=== PATIENT | male | born 1940 | race Caucasian/White ===

== ENCOUNTER 2020-03-29 | Outpatient (REF) | payer MEDICARE, SELFPAY | END 2020-03-29 00:01 | disposition home or self-care (01) | LOC: HO.VC | PROVIDERS: Visit Provider Internal Medicine | DX: Z23 Encounter for immunization (principal) | CPT/HCPCS: 0011A ==

== ENCOUNTER 2020-04-26 | Outpatient (REF) | payer MEDICARE, SELFPAY | END 2020-04-26 00:01 | disposition home or self-care (01) | LOC: HO.VC | PROVIDERS: Visit Provider Internal Medicine | DX: Z23 Encounter for immunization (principal) | CPT/HCPCS: 0012A ==

== ENCOUNTER 2020-10-10 09:57 | Outpatient (REF) | payer MEDICARE, SELFPAY ==
[2020-10-10 10:33] LABS: Basophils Percent Auto 0.4 % (0-2); Eosinophils Absolute Auto 0.1 X10*3/uL (0.0-0.4); Eosinophils Percent Auto 1.2 % (0-4); Imm Gran Abs Auto 0.01 X10*3/uL (0.00-0.03); Imm Gran Pct Auto 0.2 % (0.0-0.4); MANUAL DIFF FLAG SCAN; Mean Corpuscular HGB Conc 33.4 g/dl (31.0-36.0); Neutrophils Percent Auto 61.9 % (45-73); PLT CLUMP 1; SCAN SMEAR FLAG 1
[2020-10-10 10:35] LABS: Hematocrit 39.2 % (42-52); Hemoglobin 13.1 g/dl (14.0-18.0); Lymphocytes Absolute Auto 1.5 X10*3/uL (1.2-4.9); Mean Corpuscular Hemoglobin 31.6 pg (27.0-33.0); Mean Corpuscular Volume 94.5 fL (80-98); Mean Platelet Volume 10.8 fL (9.4-12.4); Monocytes Absolute Auto 0.5 X10*3/uL (0.1-1.2); Monocytes Percent Auto 9.3 % (2-11); Neutrophils Absolute Auto 3.5 X10*3/uL (2.0-8.3); Platelet Count 129 X10*3/uL (160-400); Red Blood Count 4.15 X10*6/uL (4.60-5.80); Red Cell Distribution Width 12.5 % (11.0-16.0); White Blood Count 5.7 X10*3/uL (4.8-10.8)
[2020-10-10 10:45] LABS: Estimated Average Glucose 103 mg/dL; Hemoglobin A1c % 5.2 %
[2020-10-10 11:04] LABS: Alanine Aminotransferase 29 U/L (0-40); Albumin Level 4.2 g/dL (3.5-5.0); Alkaline Phosphatase 59 U/L (39-117); Anion Gap 11 (12-20); Aspartate Amino Transferase 20 U/L (5-37); Bilirubin Total 1.2 mg/dL (0.0-1.0); Blood Urea Nitrogen 16 mg/dL (9-16); Carbon Dioxide 27 mmol/L (22-29); Chloride 106 mmol/L (96-108); Cholesterol 157 mg/dL; Estimated Glomerular Filt Rate 53; Glucose Fasting 94 mg/dL (60-99); HDL Cholesterol 45 mg/dL; LDL Cholesterol Calculated 100 mg/dl; Potassium 3.9 mmol/L (3.3-5.1); Sodium 140 mmol/L (135-145); Total Protein 6.9 g/dL (6.5-8.0); Triglycerides 61 mg/dL
[2020-10-10 11:13] LABS: Free T4 (Free Thyroxine) 0.98 ng/dL (0.71-1.85); Thyroid Stimulating Hormone 1.33 uIU/mL (0.32-4.0)
[2020-10-10 13:38] LABS: Folate > 20.0 ng/mL (> or = 4.0); Vitamin B12 568 pg/mL (200-900)
[2020-10-14 13:51] LABS: Vitamin D 25-OH, D2 <4 ng/mL; Vitamin D 25-OH, D3 32 ng/mL; Vitamin D 25-OH, Total 32 ng/mL (30-100)
== END 2020-10-10 09:58 | disposition home or self-care (01) ==
LOC: HO.LAB 09:57
PROVIDERS: Absent Provider Internal Medicine; PCP Internal Medicine; Visit Provider Internal Medicine
DX: I10 Essential (primary) hypertension (principal); E78.00 Pure hypercholesterolemia, unspecified; R73.02 Impaired glucose tolerance (oral); E78.5 Hyperlipidemia, unspecified; E55.9 Vitamin D deficiency, unspecified
CPT/HCPCS: 36415; 80053; 80061; 82306; 82607; 82746; 83036; 84439; 84443; 85025

== ENCOUNTER 2024-09-13 13:27 | Emergency (ER) | payer MEDICARE, SELFPAY ==
[2024-09-13 13:46] VITALS: BP 133/92; PULSE 70; RESP 18; TEMP 36.5; O2SAT 98; BMI 25.1
--- NOTE | 2024-09-13 13:46 | ED.SKABFB ---
HPI - Skin/Abscess/Foreign Bdy General Chief complaint: Skin/Abscess/Foreign Body Stated complaint: injury on nose Time Seen by Provider: 09/13/24 13:52 Source: patient Mode of arrival: ambulatory Limitations: language barrier (Slovenian-speaking forestry workers utilized) History of Present Illness ED Provider: jojo sharpe manpower development specialist manager HPI narrative: Patient is an 84 year old male with past medical history of BPH, hypercholesterolemia, hypertension, impaired glucose intolerance who presents emergency department for evaluation. He reports approximately 1 month ago the car door swung shot resulting in a scratch on the tip of his nose. He states that it has not healed. It has since created a lump, that occasionally bleeds from the center where there was a scabbed area. Denies any pain with this. No redness. He is quite adamant that there was no previous lesion prior to the initial injury. Denies any additional skin rashes or lesions. Related Data Previous Rx's ?Medication ?Instructions ?Recorded amlodipine 10 mg tablet 10 mg PO DAILY 90 days #90 tabs 09/06/20 tamsulosin 0.4 mg capsule 0.4 mg PO DAILY #90 caps 11/21/20 atorvastatin 10 mg tablet 10 mg PO DAILY #90 tabs 08/31/21 Allergies Allergy/AdvReac Type Severity Reaction Status Date / Time No Known Allergies (No Known Allergy Verified 09/13/24 13:48 Allergies*) Review of Systems Review of Systems: Yes all other systems are reviewed and are negative [facility] Past Medical History Attestation statement: The following information was validated with the patient. Source: old records reviewed Medical History PSA elevation Vitamin D deficiency Left wrist fracture Impaired glucose tolerance Hemorrhoid Shingles Diverticular disease BPH (benign prostatic hyperplasia) Hypercholesterolemia Hypertension Surgical History History of colonoscopy Family History Family History Father No problems noted. Mother No problems noted. Social History Social History Housing: Apartment Alcohol intake: former Patient Tobacco Use Status: Never used Tobacco e-Cigarette/Vaping Use: Never Used Second Hand Smoke Exposure: No Advance Directives: No Advance Directives Information Provided: Yes service: No Current occupational status: disabled Physical Exam Vital Signs: Vital Signs: Last Vital Signs Temp 97.7 F 09/13/24 13:46 Pulse 70 09/13/24 13:46 Resp 18 09/13/24 13:46 BP 133/92 H 09/13/24 13:46 Pulse Ox 98 09/13/24 13:46 O2 Del Method Room Air 09/13/24 13:46 BMI result Body Mass Index 25.1 Appearance: Alert.?Oriented to person, place and time. No acute distress.?Normal affect.?? CVS: Heart sounds normal. Normal heart rate and rhythm.? Pulses normal.?? Respiratory: No respiratory distress.? Lung sounds clear to auscultation bilaterally?? Skin: Skin warm and dry.? Normal skin color.? Nonhealing Ulcerated lesion to the tip of the nose Extremities: No lower extremity edema.? Neuro: Moves all extremities spontaneously. Sensation intact bilaterally. Ambulates with normal steady gait. Medical Decision Making Medical Decision Making MDM Narrative: Patient is an 84 year old male with past medical history of BPH, hypercholesterolemia, hypertension, impaired glucose intolerance presenting to emergency department for evaluation of a nonhealing ulcer to the tip of the nose as per HPI and PE portion of this note. There is no surrounding erythema swelling or warmth to suggest cellulitis. Nares are patent bilaterally. Given its appearance, expressed my concern to patient for potential carcinoma, and advised outpatient follow-up with dermatology for biopsy. Reports that the scabbed center often rebleeds, he is able to get the bleeding to stop with pressure. Advised that he may place topical antibiotic ointment over this area following to prevent any infection. He was given strict return precautions. Differential Diagnosis Differential Diagnoses: The differential diagnosis associated with the presentation includes (See narrative above) External Record Review External record reviewed: Outpatient record Prescription Management I considered prescription management with: Antibiotic (See narrative above, not consistent with cellulitis or localized infection, antibiotics deferred) Chronic Conditions Patient?s care impacted by: Other (See narrative above) Discharge Plan Discharge Clinical Impression: Lesion of skin of nose Patient Disposition: Home, Self-Care Additional Instructions: You were seen in the emergency department today for evaluation of a lesion/scab to your use that you stated occurred 1 month ago after scratching it from a car door. As discussed, our concern given that is not healing in its current appearance is that this may potentially be skin cancer. It is important that you contact a regular senior care provider so that they may evaluate and consider a biopsy. I have provided contact information for local dermatology office is for you. Return back to emergency department any new or worsening symptoms or concerns such as pain, swelling, redness, pus-like drainage, uncontrollable bleeding [facility] [address], [place], [place] [id number] [facility] [address], [place] [address] Prescriptions: No Action tamsulosin 0.4 mg capsule 0.4 mg PO DAILY Qty: 90 3RF atorvastatin 10 mg tablet 10 mg PO DAILY Qty: 90 0RF amlodipine 10 mg tablet 10 mg PO DAILY 90 Days Qty: 90 1RF Referrals: Physician,Unknown J [Primary Care Provider, Medical] Print Language: Slovenian
[2024-09-13 14:34] VITALS: BP 133/92; PULSE 70; RESP 18; TEMP 36.1; O2SAT 98
== END 2024-09-13 14:35 | disposition home or self-care (01) ==
PROVIDERS: Emergency Provider Emergency Medicine
DX: L98.8 Other specified disorders of the skin and subcutaneous tissue (principal)
CPT/HCPCS: 99282